=== PATIENT | male | born 1985 | race Caucasian/White ===

== ENCOUNTER 2017-09-30 19:06 | Emergency (ER) | payer OTHER ==
[2017-09-30 19:17] VITALS: BP 136/84
[2017-09-30] MEDS ORDERED: TDAP ADULT 0.5 ML INJ (BOOSTRIX) IM ONE (19:36)
--- NOTE | 2017-09-30 20:31 | EDPHY ---
General Time Seen by Provider: 09/30/17 19:35 Narrative: CHIEF COMPLAINT: Laceration to right arm HISTORY OF PRESENT ILLNESS: Patient presents with complaints of laceration to the right arm and hand. He was installing a glass of shower door on a bathtub just prior to arrival when it shattered. He sustained lacerations to the dorsum of the right hand near the metacarpals and on the proximal right forearm on the radial side. He 1st presented to Urgent Care and they were uncomfortable with the depth a laceration in symptoms our facility for higher level care. He does have moderate pain in the hand laceration but no pain in the forearm laceration. No difficulty bending or straightening the fingers on the right hand, but he does have pain with extension of the wrist and fingers. TIME OF INJURY: Just prior to arrival TETANUS STATUS: Uncertain MEDICAL/SURGICAL/SOCIAL HISTORY: Uncomplicated history. Nonsmoker. REVIEW OF SYSTEMS: Ten systems reviewed and are negative unless otherwise noted in the HPI EXAMINATION General Appearance: Alert, no distress Head: normocephalic, atraumatic Cardiovascular: Pulses normal throughout. Brisk cap refill Neurological: A&O, sensory symmetric, strength symmetric Skin: Warm and dry, no rash. There are 2 lacerations. The 1st is over the dorsum of the right hand, near the metacarpals. 3 cm laceration This is a 2 layer laceration with exposure of the extensor tendons but no compromise the tendon sheath. The 2nd laceration is overlying the right proximal forearm on radial side. This measures approximately 3 cm. There is no compromise of the fascial layer. No foreign body. Extremities: Tenderness in the area of the right upper extremity lacerations with soft compartments and symmetric range of motion of the elbows, wrists and fingers. DIFFERENTIAL DIAGNOSES: Including but not limited to laceration, laceration with tendon injury MDM: 7:30 p.m. Lacerations to the dorsum of the right hand overlying the extensor tendons and to the proximal right forearm on the radial side. The forearm injury is superficial but will require suture repair. There is no proximity to the underlying musculature. The hand laceration communicates with the compartment involving the extensor tendons, but I do not appreciate obvious extensor injury as he remains fully intact distally. I will anesthetize, irrigate and re- evaluate with sterile probe. 8:30 p.m. Prior to closing the wounds, I again probed the area of laceration and there was compromise of the fascia but not of the extensor tendons. He remains fully intact with symmetric range of motion including extension of the wrist, extension digitorum at the MCP, PIP and the IP joints. Wound was copiously irrigated and a two-layer repair was performed. He is placed on Keflex prophylactically due to the depth proximity to the extensor tendons. He is placed in a volar splint to avoid repetitive motion of the wrist. We discussed mandatory hand follow-up in ED precautions. He is comfortable this plan and discharged home stable condition. PROCEDURE: Laceration repair, 1. Consent: Verbal Location: Right forearm, radial side Length of repair: 3 cm Complexity: Complex Layer involvement: 2 layer Anesthesia: Local. 1% lidocaine with epinephrine, 6 mL Irrigation: Extensive Debridement: None Procedure description: Following good anesthesia, the wound was copiously irrigated. Wound bed was explored with a sterile glove, and there is no foreign body noted. There was compromise of the fascia overlying the extensor digitorum without injury to the extensor tendons. Wound borders were approximated well with good hemostasis. Tolerated well without complication. Suture/Staple material: 4-0 Prolene, 5 simple ruptured sutures Wound care: Routine as discussed Suture/Staple removal: 10-14 Days PROCEDURE: Laceration repair, 2. Consent: Verbal Location: Right hand, dorsal Length of repair: 3 cm Complexity: Complex Layer involvement: 2 layer Anesthesia: Local. 1% lidocaine with epinephrine. 5 mL Irrigation: Extensive Debridement: None Procedure description: Following good anesthesia, the wound was copiously irrigated. Wound bed was explored with a sterile glove, and there is no foreign body noted. Wound borders were approximated well with good hemostasis. Tolerated well without complication. Suture/Staple material: Subcutaneous layer: Vicryl 4 simple interrupted sutures. cutaneous layer: 4-0 Prolene, 5 simple interrupted Wound care: Routine as discussed Suture/Staple removal: 7-10 Days SUPERVISION: This patient was independently evaluated without direct involvement of or examination by the attending physician. ED Precautions: Worsening pain. Erythema, edema, cyanosis, pallor, paresthesia or anesthesia. - Diagnostics Imaging Results: Imaging Impressions Hand X-Ray 09/30/17 19:35 Impression: No evidence of radiopaque foreign object in the soft tissues. - History Smoking Status: Former smoker - Objective Vital Signs: Initial Vital Signs Temperature (C) 98.2 F 09/30/17 19:15 Heart Rate 83 09/30/17 19:15 Respiratory Rate 18 09/30/17 19:15 Blood Pressure 136/84 H 09/30/17 19:15 O2 Sat (%) 95 09/30/17 19:15 O2 Delivery Mode Room Air Allergies/Adverse Reactions: No Known Allergies Allergy (Unverified 09/30/17 19:14) Home Medications: Medication Instructions Recorded Cephalexin [Keflex (*)] 500 mg PO QID #28 cap 09/30/17 Medications Given: Discontinued Medications Hydrocodone Bitart/Acetaminophen ([place] 5/325mg Prepack#6) 1 btl TAKEHOME EDNOW ONE Stop: 09/30/17 20:33 Last Admin: 09/30/17 20:46 Dose: 1 btl Cephalexin (Keflex 500 Mg Prepack#4) 1 btl TAKEHOME EDNOW ONE PRN Reason: Protocol Stop: 09/30/17 20:33 Last Admin: 09/30/17 20:45 Dose: 1 btl Diphtheria/Tetanus/Acell Pertussis (Boostrix) 0.5 ml IM .ONCE ONE Stop: 09/30/17 19:37 Last Admin: 09/30/17 19:46 Dose: 0.5 ml Departure - Departure Disposition: Home, Routine, Self-Care Clinical Impression: Laceration of hand, complicated Qualifiers: Encounter type: initial encounter Laterality: right Qualified Code(s): S61.411A - Laceration without foreign body of right hand, initial encounter Laceration of forearm Qualifiers: Encounter type: initial encounter Laterality: right Qualified Code(s): S51.811A - Laceration without foreign body of right forearm, initial encounter Condition: Good Instructions: Cephalexin (By mouth), Hydrocodone/Acetaminophen (By mouth), Care For Your Stitches (DC), Laceration (DC) Additional Instructions: 1. Wear your splint for the next 3-5 days or until completely pain-free or cleared by orthopedist 2. Contact the hand specialist tomorrow morning for outpatient care 3. Keflex antibiotics prophylactically to completion 4. Return here for any worsening pain, difficulty bending or straightening the wrist or fingers, redness, warmth or fever Referrals: JORDAN GUERRERO [Primary Care Provider] - As per Instructions Shavonne Ventura MD [Medical Doctor] - As per Instructions Prescriptions: Cephalexin [Keflex (*)] 500 mg PO QID #28 cap
[2017-09-30] MEDS ORDERED: HYDROCOD/APAP 5/325 PREPACK#6 BTL TAKEHOME ONE (20:32)
[2017-09-30] MEDS ORDERED: CEPHALEXIN 500MG PREPACK#4 BTL TAKEHOME ONE (20:32)
== END 2017-09-30 21:09 | disposition home or self-care (01) ==
PROC: 0JQJ3ZZ Repair Right Hand Subcutaneous Tissue and Fascia, Percutaneous Approach (ICD-10-PCS; principal; 2017-09-30)
PROC: 0HQDXZZ Repair Right Lower Arm Skin, External Approach (ICD-10-PCS; principal; 2017-09-30)
DX: S61.411A Laceration without foreign body of right hand, initial encounter (principal); S51.811A Laceration without foreign body of right forearm, initial encounter; Z23 Encounter for immunization; Z87.891 Personal history of nicotine dependence; W25.XXXA Contact with sharp glass, initial encounter; Y92.89 Other specified places as the place of occurrence of the external cause; Y99.8 Other external cause status; Y93.89 Activity, other specified